=== PATIENT | female | born 1965 | race Caucasian/White ===

== ENCOUNTER 2021-09-19 17:12 | Inpatient (IN) | payer BC ==
[2021-09-19] MEDS ORDERED: MORPHINE SULFATE 4 MG/ML SYRINGE IV STA (17:44)
[2021-09-19] MEDS ORDERED: SODIUM CHLORIDE 0.9% 1,000 ML IV STA (17:44)
[2021-09-19] MEDS ORDERED: ONDANSETRON 4 MG/2 ML VIAL IVP STA (17:44)
[2021-09-19] MEDS ORDERED: amLODIPine 10 MG TAB PO SCH (17:45)
[2021-09-19] MEDS ORDERED: LISINOPRIL-HCTZ 10-12.5 MG 1 EACH TAB PO SCH (17:45)
[2021-09-19] MEDS ORDERED: lisinopriL 20 MG TAB PO SCH (17:45)
[2021-09-19] MEDS ORDERED: NALOXONE 0.4 MG/ML 1 ML VIAL IV PRN (18:28)
[2021-09-19 18:33] LABS: Basophils # (A) 0.1 k/uL (0-0.2); Basophils % (A) 1 %; Eosinophils # (A) 0.1 k/uL (0-0.7); Eosinophils % (A) 1 %; HCT 48.3 % (34.0-46.0); HGB 15.7 gm/dL (11.4-16.0); Lymphocytes # (A) 0.6 k/uL (1.0-4.8); Lymphocytes % (A) 4 %; MCH 29.5 pg (25.0-35.0); MCHC 32.6 g/dL (31.0-37.0); MCV 90.5 fL (80.0-100.0); Mean Platelet Volume 6.9; Monocytes # (A) 0.5 k/uL (0-1.0); Monocytes % (A) 3 %; Neutrophils # (A) 12.1 k/uL (1.3-7.7); Neutrophils % (A) 91 %; Platelet Count 318 k/uL (150-450); RBC 5.33 m/uL (3.80-5.40); RDW 12.5 % (11.5-15.5); WBC 13.3 k/uL (3.8-10.6)
[2021-09-19] MEDS: MORPHINE SULFATE 4 MG/ML SYRINGE IV PRN (18:33)
--- NOTE | 2021-09-19 18:35 | ED ---
General Adult HPI - General Chief complaint: Abdominal Pain Stated complaint: abd pain Time Seen by Provider: 09/19/21 17:27 Source: patient, EMS, RN notes reviewed, old records reviewed Mode of arrival: EMS Limitations: no limitations - History of Present Illness Initial comments: Patient is a 56-year-old female that was transferred from [facility] for small bowel obstruction. Prior surgeries were done at [facility], however that hospital [facility] transfers at this time. Patient was accepted here for transfer. She is been having nausea, vomiting, as well as upper bilateral quadrant abdominal pain since last night after eating pizza. Has been having somewhat decreased volumes of stools and they've become more runny. Does have a history of multiple abdominal surgeries including hernia repairs and small bowel obstructions. He was concerned that that may be because of recurrent pain. Denies any urinary complaints. Denies any blood in her stool. Did have nausea as well as nonbilious, bloody emesis. Denies chest pain, shortness of breath. No other acute complaints at this time. No other acute complaints. Presents for admission and surgical evaluation. - Related Data Home Medications Medication Instructions Recorded Confirmed Acetaminophen Tab [Tylenol Tab] 1,000 mg PO Q6HR PRN 09/19/21 09/19/21 Ascorbic Acid [Vitamin C] 500 mg PO DAILY 09/19/21 09/19/21 Aspirin EC [Ecotrin Low Dose] 81 mg PO DAILY 09/19/21 09/19/21 Baclofen 10 mg PO TID PRN 09/19/21 09/19/21 Nikko/D3/Mag11/Zinc/Manager Of Hospital/John/Bor 1 tab PO DAILY 09/19/21 09/19/21 [Caltrate 600+D Plus Tablet] Cholecalciferol [Vitamin D3 (25 25 mcg PO DAILY 09/19/21 09/19/21 Mcg = 1000 Iu)] L.acidoph,Paracasei, B.lactis 1 cap PO DAILY 09/19/21 09/19/21 [Probiotic] Lisinopril-Hctz 10-12.5 mg 1 tab PO DAILY 09/19/21 09/19/21 [Zestoretic 10-12.5] Multivitamins, Thera [Multivitamin 1 tab PO DAILY 09/19/21 09/19/21 (formulary)] Unknown Allergy Tab 1 tab PO DAILY 09/19/21 09/19/21 Zinc 50 mg PO DAILY 09/19/21 09/19/21 amLODIPine [Norvasc] 10 mg PO DAILY 09/19/21 09/19/21 lisinopriL [Zestril] 20 mg PO DAILY 09/19/21 09/19/21 Allergies Allergy/AdvReac Type Severity Reaction Status Date / Time No Known Allergies Allergy Verified 09/19/21 18:31 Review of Systems ROS Statement: Those systems with pertinent positive or pertinent negative responses have been documented in the HPI. Review of Systems: CONST: Denies fever EYES: Denies blurry vision ENT: Denies nasal congestion C/V: Denies Chest pain RESP: Denies shortness of breath GI: Endorses abdominal pain : Denies dysuria SKIN: Denies rash. MSK: Denies joint pain. NEURO: Denies headache ROS Other: All systems not noted in ROS Statement are negative. Past Medical History Past Medical History: Hypertension History of Any Multi-Drug Resistant Organisms: None Reported Past Surgical History: Bladder Surgery, Hernia Repair, Hysterectomy, Orthopedic Surgery Additional Past Surgical History / Comment(s): bowel obstruction 2017 Smoking Status: Never smoker Past Alcohol Use History: None Reported Past Drug Use History: None Reported General Exam - General Exam Comments Initial Comments: General: Appears in no acute distress. HEAD: Normal with no signs of head trauma. EYES: PERRLA, EOMI, conjunctiva normal, no discharge. ENT: Hearing grossly intact, normal oropharynx. RESPIRATORY: Clear breath sounds bilaterally. No wheezes, rales, or rhonchi. C/V: Regular rate and rhythm. S1 and S2 auscultated, no edema, peripheral pulses 2+ and intact throughout ABD: Abdomen is soft, no obvious distention. Tender to palpation in the bilateral right and left upper quadrants of the abdomen. No guarding. No peritoneal signs. No rebound tenderness. EXT: Normal range of motion, no obvious deformity SKIN: No rashes or lesions observed on exposed skin. NEURO: Alert and oriented 4. Limitations: no limitations Course Vital Signs 09/19/21 17:15 Temperature 98.3 F Pulse Rate 108 H Respiratory 18 Rate Blood Pressure 160/106 O2 Sat by Pulse 95 Oximetry Medical Decision Making - Medical Decision Making She was transferred for surgical evaluation for small bowel obstruction. Vital signs are within normal limits. She'll be started on pain medications, Zofran as needed. NG tube will be placed. Patient's labs from the outside facility appear unremarkable for we will repeat. Screening EKG will also be obtained. Preliminary report sent over for the patient's CT imaging was read as a small bowel obstruction with multiple dilated loops of proximal small bowel with a transition point appearing to be in the right lower quadrant. Images were uploaded to the system. We will repeat laboratory studies admit the patient to the hospital. She was in agreement this plan. I spoke with surgery on-call, Dr. Acosta who accepted the patient. She requested that I listened be consulted for medical management for the patient. I spoke with Dr. Nick of [facility] who accepted the consult. Patient will be admitted in stable condition. She is made nothing by mouth. - Lab Data Result diagrams: 09/19/21 18:17 Lab Results 09/19/21 Range/Units 18:17 WBC 13.3 H (3.8-10.6) k/uL RBC 5.33 (3.80-5.40) m/uL Hgb 15.7 (11.4-16.0) gm/dL Hct 48.3 H (34.0-46.0) % MCV 90.5 (80.0-100.0) fL MCH 29.5 (25.0-35.0) pg MCHC 32.6 (31.0-37.0) g/dL RDW 12.5 (11.5-15.5) % Plt Count 318 (150-450) k/uL MPV 6.9 Neutrophils % 91 % Lymphocytes % 4 % Monocytes % 3 % Eosinophils % 1 % Basophils % 1 % Neutrophils # 12.1 H (1.3-7.7) k/uL Lymphocytes # 0.6 L (1.0-4.8) k/uL Monocytes # 0.5 (0-1.0) k/uL Eosinophils # 0.1 (0-0.7) k/uL Basophils # 0.1 (0-0.2) k/uL - EKG Data -: EKG Interpreted by Me EKG Comments: 12-lead Electrocardiogram Interpretation Note EKG was reviewed and interpreted by myself. 12-lead ECG performed at 1827 is interpreted by me as revealing normal sinus rhythm at a rate of 98 beats per minute. Henderson is normal. SC interval is 165 ms, QR presybeterian is 108 ms, QTc is 419ms. There were no ST or T wave abnormalities to suggest myocardial ischemia or injury. R wave progression across the precordium was satisfactory. By my interpretation this EKG is non-diagnostic for acute ischemia. Disposition Clinical Impression: Small bowel obstruction Disposition: ADMITTED IP TO THIS HOSP Condition: Stable Referrals: Nonstaff,Physician [Primary Care Provider] - 1-2 days Time of Disposition: 18:20
[2021-09-19 18:42] LABS: ALT 28 U/L (4-34); AST 34 U/L (14-36); African American GFR (CKD) >90 (>60 ml/min/1.73 sqM); Albumin 4.9 g/dL (3.5-5.0); Alkaline Phosphatase 88 U/L (38-126); Amylase 61 U/L (30-110); Anion Gap 12 mmol/L; Blood Urea Nitrogen 24 mg/dL (7-17); Calcium 9.8 mg/dL (8.4-10.2); Carbon Dioxide 27 mmol/L (22-30); Chloride 101 mmol/L (98-107); Glucose 150 mg/dL (74-99); Lipase 55 U/L (23-300); Non-African American GFR(CKD) >90 (>60 ml/min/1.73 sqM); Sodium 140 mmol/L (137-145); Total Bilirubin 0.4 mg/dL (0.2-1.3); Total Protein 7.7 g/dL (6.3-8.2)
[2021-09-19 18:52] LABS: Potassium 4.1 mmol/L (3.5-5.1)
--- NOTE | 2021-09-19 19:22 | P.GSHP ---
History of Present Illness H&P Date: 09/19/21 Chief Complaint: Abdominal pain, nausea and vomiting Patient's a 56-year-old female who began having some discomfort in the lower abdomen yesterday. She had a pastry. Then had some pizza fairly late at night. She began having abdominal discomfort. He went into bed in was restless all night. Today she began having nausea and vomiting. She went into the emergency department and CT was suggestive of a small bowel obstruction with transition point in the right lower quadrant. She gives a history of having a strangulated hernia with small bowel resection many years ago. She has had a couple of hernia repairs, the last one was in 2018. She hasn't had any admissions for small bowel obstructions since that time. She will occasionally have some discomfort but not to this extent. That is always resolved fairly quickly if she lays on her stomach. Normal bowel movement yesterday. Small amount of stool and flatus with vomiting today. - Review of Systems All systems: negative Past Medical History Past Medical History: Hypertension History of Any Multi-Drug Resistant Organisms: None Reported Past Surgical History: Bladder Surgery, Hernia Repair, Hysterectomy, Orthopedic Surgery Additional Past Surgical History / Comment(s): bowel obstruction 2017 Smoking Status: Never smoker Past Alcohol Use History: None Reported Past Drug Use History: None Reported Medications and Allergies Home Medications Medication Instructions Recorded Confirmed Type Acetaminophen Tab [Tylenol Tab] 1,000 mg PO Q6HR PRN 09/19/21 09/19/21 History Ascorbic Acid [Vitamin C] 500 mg PO DAILY 09/19/21 09/19/21 History Aspirin EC [Ecotrin Low Dose] 81 mg PO DAILY 09/19/21 09/19/21 History Baclofen 10 mg PO TID PRN 09/19/21 09/19/21 History Nikko/D3/Mag11/Zinc/Acid Pumper/John/Bor 1 tab PO DAILY 09/19/21 09/19/21 History [Caltrate 600+D Plus Tablet] Cholecalciferol [Vitamin D3 (25 25 mcg PO DAILY 09/19/21 09/19/21 History Mcg = 1000 Iu)] L.acidoph,Paracasei, B.lactis 1 cap PO DAILY 09/19/21 09/19/21 History [Probiotic] Lisinopril-Hctz 10-12.5 mg 1 tab PO DAILY 09/19/21 09/19/21 History [Zestoretic 10-12.5] Multivitamins, Thera [Multivitamin 1 tab PO DAILY 09/19/21 09/19/21 History (formulary)] Unknown Allergy Tab 1 tab PO DAILY 09/19/21 09/19/21 History Zinc 50 mg PO DAILY 09/19/21 09/19/21 History amLODIPine [Norvasc] 10 mg PO DAILY 09/19/21 09/19/21 History lisinopriL [Zestril] 20 mg PO DAILY 09/19/21 09/19/21 History Allergies Allergy/AdvReac Type Severity Reaction Status Date / Time No Known Allergies Allergy Verified 09/19/21 18:31 Surgical - Exam Osteopathic Statement: *. No significant issues noted on an osteopathic structural exam other than those noted in the History and Physical/Consult. Vital Signs Temp Pulse Resp BP Pulse Ox 98.3 F 108 H 18 160/106 95 09/19/21 17:15 09/19/21 17:15 09/19/21 17:15 09/19/21 17:15 09/19/21 17:15 - General well developed, well nourished, no distress - Neck trachea midline - Respiratory normal expansion, clear to auscultation - Cardiovascular Rhythm: regular - Abdomen Abdomen: no guarding, no rigid, no rebound, distended (With tympany in the upper abdomen) Hernia: no umbilical (No obvious incisional hernias noted) Results - Labs 09/19/21 18:17 09/19/21 18:17 Abnormal Lab Results - Last 24 Hours (Table) 09/19/21 09/19/21 Range/Units 18:17 18:17 WBC 13.3 H (3.8-10.6) k/uL Hct 48.3 H (34.0-46.0) % Neutrophils # 12.1 H (1.3-7.7) k/uL Lymphocytes # 0.6 L (1.0-4.8) k/uL BUN 24 H (7-17) mg/dL Glucose 150 H (74-99) mg/dL Diabetes panel 09/19/21 Range/Units 18:17 Sodium 140 (137-145) mmol/L Potassium 4.1 (3.5-5.1) mmol/L Chloride 101 (98-107) mmol/L Carbon Dioxide 27 (22-30) mmol/L BUN 24 H (7-17) mg/dL Creatinine 0.57 (0.52-1.04) mg/dL Glucose 150 H (74-99) mg/dL Calcium 9.8 (8.4-10.2) mg/dL AST 34 (14-36) U/L ALT 28 (4-34) U/L Alkaline Phosphatase 88 (38-126) U/L Total Protein 7.7 (6.3-8.2) g/dL Albumin 4.9 (3.5-5.0) g/dL Calcium panel 09/19/21 Range/Units 18:17 Calcium 9.8 (8.4-10.2) mg/dL Albumin 4.9 (3.5-5.0) g/dL Pituitary panel 09/19/21 Range/Units 18:17 Sodium 140 (137-145) mmol/L Potassium 4.1 (3.5-5.1) mmol/L Chloride 101 (98-107) mmol/L Carbon Dioxide 27 (22-30) mmol/L BUN 24 H (7-17) mg/dL Creatinine 0.57 (0.52-1.04) mg/dL Glucose 150 H (74-99) mg/dL Calcium 9.8 (8.4-10.2) mg/dL Adrenal panel 09/19/21 Range/Units 18:17 Sodium 140 (137-145) mmol/L Potassium 4.1 (3.5-5.1) mmol/L Chloride 101 (98-107) mmol/L Carbon Dioxide 27 (22-30) mmol/L BUN 24 H (7-17) mg/dL Creatinine 0.57 (0.52-1.04) mg/dL Glucose 150 H (74-99) mg/dL Calcium 9.8 (8.4-10.2) mg/dL Total Bilirubin 0.4 (0.2-1.3) mg/dL AST 34 (14-36) U/L ALT 28 (4-34) U/L Alkaline Phosphatase 88 (38-126) U/L Total Protein 7.7 (6.3-8.2) g/dL Albumin 4.9 (3.5-5.0) g/dL Assessment and Plan (1) Hypertension Current Visit: Yes Status: Acute Code(s): I10 - ESSENTIAL (PRIMARY) HYPERTENSION SNOMED Code(s): 19782705 (2) Small bowel obstruction Current Visit: Yes Status: Acute Code(s): K56.609 - UNSP INTESTNL OBST, UNSP TO PARTIAL VERSUS COMPLETE OBST SNOMED Code(s): 302498530 Plan: Patient will be admitted. Hydrate. NG tube decompression. Bowel rest. Serial exams. DVT and ulcer prophylaxis. I discussed the usual treatment of this. Based on current findings which I nonsurgical treatment. Further recommendations to follow.
[2021-09-19 19:43] LABS: INR 0.9 (<1.2); Partial Thromboplastin Time 21.9 sec (22.0-30.0); Prothrombin Time 10.1 sec (9.0-12.0)
--- NOTE | 2021-09-19 20:11 | XR ---
EXAMINATION TYPE: XR chest 1V confirm line [facility] DATE OF EXAM: 09/19/2021 COMPARISON: NONE HISTORY: Tube placement TECHNIQUE: 3 views FINDINGS: There is no heart failure nor confluent pneumonic infiltrate. Costophrenic angles are clear . Bony thorax is intact there is nasogastric tube in the stomach. IMPRESSION: No active cardiopulmonary disease. NG tube is in the stomach.
[2021-09-19] MEDS: ONDANSETRON 4 MG/2 ML VIAL IVP PRN (23:38)
[2021-09-19] MEDS: HEPARIN SODIUM,PORCINE/PF 5,000 UNIT/0.5 ML SYRINGE SQ SCH (23:43)
[2021-09-20] MEDS: MORPHINE SULFATE 4 MG/ML SYRINGE IV PRN (00:44)
--- NOTE | 2021-09-20 02:46 | P.CONS ---
History of Present Illness - Reason for Consult Consult date: 09/19/21 medical management - Chief Complaint abd pain - History of Present Illness 56 year old female with hypertension comes in for abd pain of 1 day duration , started last night after Pizza dinner, lower abd pain, non radiating, was more of discomfort initially , she was feeling well all day prior to that. was able to go to sleep but today pain progressed throughout the day , got worse, and associated with vomiting, non bilious or bloody. she continue to pass gases, and small amount of stool ye sterday. due to prior experience with multiple episodes of strangulated hernia and bowel obstructions and surgeries, she decided to come in for evaluation . denies any GI bleeding, denies urinary changes, fever, chills. denies SOB or chest pain. CT imaging of the abd suggested SBO. Past Medical History Past Medical History: Hypertension History of Any Multi-Drug Resistant Organisms: None Reported Past Surgical History: Bladder Surgery, Hernia Repair, Hysterectomy, Orthopedic Surgery Additional Past Surgical History / Comment(s): bowel obstruction 2017 Smoking Status: Never smoker Past Alcohol Use History: None Reported Past Drug Use History: None Reported Medications and Allergies Home Medications Medication Instructions Recorded Confirmed Type Acetaminophen Tab [Tylenol Tab] 1,000 mg PO Q6HR PRN 09/19/21 09/19/21 History Ascorbic Acid [Vitamin C] 500 mg PO DAILY 09/19/21 09/19/21 History Aspirin EC [Ecotrin Low Dose] 81 mg PO DAILY 09/19/21 09/19/21 History Baclofen 10 mg PO TID PRN 09/19/21 09/19/21 History Nikko/D3/Mag11/Zinc/[employer] Portal Developer/John/Bor 1 tab PO DAILY 09/19/21 09/19/21 History [Caltrate 600+D Plus Tablet] Cholecalciferol [Vitamin D3 (25 25 mcg PO DAILY 09/19/21 09/19/21 History Mcg = 1000 Iu)] L.acidoph,Paracasei, B.lactis 1 cap PO DAILY 09/19/21 09/19/21 History [Probiotic] Lisinopril-Hctz 10-12.5 mg 1 tab PO DAILY 09/19/21 09/19/21 History [Zestoretic 10-12.5] Multivitamins, Thera [Multivitamin 1 tab PO DAILY 09/19/21 09/19/21 History (formulary)] Unknown Allergy Tab 1 tab PO DAILY 09/19/21 09/19/21 History Zinc 50 mg PO DAILY 09/19/21 09/19/21 History amLODIPine [Norvasc] 10 mg PO DAILY 09/19/21 09/19/21 History lisinopriL [Zestril] 20 mg PO DAILY 09/19/21 09/19/21 History Allergies Allergy/AdvReac Type Severity Reaction Status Date / Time No Known Allergies Allergy Verified 09/19/21 18:31 Physical Exam Vitals: Vital Signs Temp Pulse Pulse Resp BP BP Pulse Ox 09/19/21 21:57 98.8 F 98 18 154/87 93 L 09/19/21 20:28 99 138/94 100 09/19/21 17:15 98.3 F 108 H 18 160/106 95 Intake and Output 09/19/21 09/19/21 09/20/21 14:59 22:59 06:59 Other: Weight 107.501 kg Constitutional: No acute distress, conversant, cooperative, NG tube in place Eyes: Anicteric sclerae, moist conjunctiva, Pupils equal round reactive to light Neck: Supple, no masses, or JVD No carotid bruits No thyromegaly Lungs: Clear to auscultation Clear to percussion Normal respiratory effort, no accessory muscle use Cardiovascular: Heart regular in rate and rhythm, No murmurs, gallops, or rubs No peripheral edema Abdominal: Soft discomfort to deep palpation no guarding, rebound or rigidity Abdomen moving with respiration Normoactive bowel sounds No hepatomegaly, No splenomegaly No palpable mass No abdominal wall hernia noted Skin: Normal temperature, tone, texture, turgor No induration No subcutaneous nodules No rash, lesions No ulcers Extremities: No digital cyanosis No clubbing Pedal pulses intact and symmetrical Radial pulses intact and symmetrical No calf tenderness Psychiatric: Alert and oriented to person, place and time Appropriate affect fair judgement Neuro Muscles Strength 5/5 in all 4 extremities Sensation to light touch grossly present throughout Cranial nerves II-XII grossly intact No focal sensory deficits Lymphatics: no palpable cervical or supraclavicular , or inguinal lymph nodes Results CBC & Chem 7: 09/19/21 18:17 09/19/21 18:17 Labs: Abnormal Lab Results - Last 24 Hours (Table) 09/19/21 09/19/21 09/19/21 Range/Units 18:17 18:17 19:02 WBC 13.3 H (3.8-10.6) k/uL Hct 48.3 H (34.0-46.0) % Neutrophils # 12.1 H (1.3-7.7) k/uL Lymphocytes # 0.6 L (1.0-4.8) k/uL APTT 21.9 L (22.0-30.0) sec BUN 24 H (7-17) mg/dL Glucose 150 H (74-99) mg/dL Assessment and Plan Assessment: SBO Management per general surgery, no plans for immediate intervention NG tube in place Nothing by mouth IV fluid hydration Patient passing gases No GI bleeding Protonix daily Leukocytosis most likely reactive to above Chronic conditions Hypertension Continue lisinopril and amlodipine Full code DVT prophylaxis heparin subcu 3 times a day Follow-up morning labs electrolytes and renal function, CBC Thank you for allowing us to participate in the care of this patient. Do not hesitate to contact us with questions. Someone can be reached from the [facility] hospitalist group at all hours of the day at [phone].
--- NOTE | 2021-09-20 03:58 | XR ---
EXAM: XR Chest, 1 View CLINICAL HISTORY: ITS.REASON XR Reason: NG tube placement TECHNIQUE: Frontal view of the chest. COMPARISON: 09/19/2021 IMPRESSION: NG tube terminates in the gastric fundus
[2021-09-20] MEDS: HEPARIN SODIUM,PORCINE/PF 5,000 UNIT/0.5 ML SYRINGE SQ SCH ×3 (07:42→23:41)
[2021-09-20] MEDS: PANTOPRAZOLE 40 MG/10 ML VIAL IVP SCH (07:43)
[2021-09-20] MEDS: lisinopriL 20 MG TAB PO SCH (07:43)
[2021-09-20] MEDS: amLODIPine 10 MG TAB PO SCH (07:43)
[2021-09-20 09:10] LABS: Basophils # (A) 0.03 X 10*3/uL (0.00-0.10); Basophils % (A) 0.3 %; Eosinophils # (A) 0.01 X 10*3/uL (0.04-0.35); Eosinophils % (A) 0.1 %; HGB 13.1 g/dL (12.0-15.0); Immature Grans, Automated 0.3 %; Lymphocytes # (A) 0.83 X 10*3/uL (0.90-5.00); Lymphocytes % (A) 8.5 %; MCH 28.4 pg (27.0-32.0); MCHC 31.2 g/dL (32.0-37.0); MCV 91.1 fL (80.0-97.0); Mean Platelet Volume 9.7 fL (9.5-12.2); Monocytes # (A) 0.76 X 10*3/uL (0.20-1.00); Monocytes % (A) 7.7 %; NRBC Per 100 WBC 0 /100 WBCS (0.0-0.0); Neutrophils # (A) 8.15 X 10*3/uL (1.80-7.70); Neutrophils % (A) 83.1 %; Platelet Count 285 X 10*3/uL (140-440); RBC 4.61 X 10*6/uL (4.10-5.20); RDW 12.9 % (11.5-14.5); WBC 9.81 X 10*3/uL (4.50-10.00)
--- NOTE | 2021-09-20 09:11 | XR ---
EXAMINATION TYPE: XR abdomen 2V DATE OF EXAM: 09/20/2021 COMPARISON: NONE HISTORY: Pain TECHNIQUE: One view abdominal series FINDINGS: The osseous structures are intact. The bowel gas pattern is nonspecific. Dilated small bowel loops w ith NG tube noted likely overlying the gastric body. Findings suggestive of bowel obstruction. Scolio tic curvature of the spine. Surgical clips right upper quadrant. Air is seen within the colon. IMPRESSION: 1. Numerous dilated small bowel loops with pattern suggestive of at least partial bowel obstruction o r severe ileus correlate clinically.
[2021-09-20 09:33] LABS: African American GFR (CKD) 123.6 (60.0-200.0); Anion Gap 12.4 mmol/L (10.00-18.00); BUN/Creat Ratio 48.8 Ratio (12.00-20.00); Blood Urea Nitrogen 24.4 mg/dL (9.0-27.0); Calcium 8.6 mg/dL (8.7-10.3); Carbon Dioxide 25.6 mmol/L (20.0-27.5); Non-African American GFR(CKD) 106.7 (60.0-200.0); Potassium 3.8 mmol/L (3.5-5.5)
[2021-09-20] MEDS: ONDANSETRON 4 MG/2 ML VIAL IVP PRN (12:27)
--- NOTE | 2021-09-20 15:28 | P.PN ---
Subjective Progress Note Date: 09/20/21 Hospital course: Patient is a very pleasant 56-year-old female with a past medical history of hypertension, strangulated hernia requiring repair, bowel obstructions with surgical repair, hysterectomy, and bladder surgery.. She presented to the emergency department with a chief complaint of abdominal pain. Patient reported this pain began shortly after eating pizza for dinner. This pain was reported as diffuse pain to lower abdomen which progressively worsened and became associa kalpana with nausea and vomiting. Patient underwent full evaluation in the emergency department at [facility]. CT abdomen and pelvis was reportedly concerning for a small bowel obstruction and patient was transferred to our facility for evaluation by general surgery and continued medical management. Patient is currently admitted under Gen. surgery team and we have been consulted for continued medical management throughout her hospitalization. Physical exam: Patient seen and fully evaluated at bedside. She was sitting up in chair, she reports significant improvement in previously reported abdominal pain/discomfort. Reports only mild epigastric pain remains. NG tube in place and continues to low intermittent suction with moderate amount of dark brown drainage. Per documentation in chart patient has had a total of 700 mL's of combined gastric drainage/emesis over the past 24 hours. Patient has had no further episodes of vomiting since placement of NG tube. Morning labs unremark able. Patient has had resolution of previously noted leukocytosis. Patient was started on IV fluids with D5 0.45 secondary to NPO status. KUB completed this morning which revealed numerous dilated small bowel loops with pattern suggestive of at least partial bowel obstruction or severe ileus. Vital signs reviewed and stable. General: Nontoxic, no distress and appears stated age. Derm: Skin warm and dry, normal coloration for ethnicity. Head: Atraumatic, normocephalic and symmetric. Eyes: EOMs intact, no lid lag, and anicteric sclera Mouth: no lip lesions, mucus membranes moist Cardiovascular: regular rate and rhythm with normal S1S2, no murmur, positive posterior tibial pulses bilaterally, and cap refill < 2 seconds. Lungs: Respirations even, regular, and unlabored on room air. Lungs CTA bilaterally, no rhonchi, no rales, no wheezing, and no accessory muscle usage. Abdominal: soft, mild tenderness upon palpation was reported to mid epigastric region only no guarding, no appreciable organomegaly Ext: ROM intact. No gross muscle atrophy, no edema, no contractures Neuro: Speech clear, face symmetrical and CN II-XII grossly intact with no noted focal neuro deficits Psych: Alert and oriented to person, place, time, and situation. Appropriate and pleasant affect. Assessment and Plan of Care: Abdominal pain, nausea, and vomiting Small bowel obstruction -Management per primary admitting general surgery team. -Patient currently undergoing conservative/supportive measures and bowel rest with no plans for immediate intervention. -Maintain NG tube to low intermittent suction and monitor gastric output. -Continue to provide gentle IV fluid hydration with D5 0.45% normal saline until patient resumes normal diet. -Maintain NPO status until diet is increased by general surgery team. Leukocytosis, resolved -Likely reactive. No signs of infection at this time. We will continue to monitor with repeat a.m. labs. Hypertension -Monitor vital signs and continue daily medication regimen with Norvasc and lisinopril. DVT prophylaxis with heparin Thank you for allowing us to participate in the care of this pleasant patient. Do not hesitate to contact us with questions. Someone can be reached from the [facility] hospitalist group all hours of the day at [phone] or via [employer] Objective - Vital Signs Vital signs: Vital Signs Temp 98.5 F 09/20/21 02:00 Pulse 98 09/20/21 02:00 Resp 16 09/20/21 02:00 BP 136/78 09/20/21 02:00 Pulse Ox 91 L 09/20/21 02:00 FiO2 Intake & Output 09/19/21 09/20/21 09/20/21 18:59 06:59 18:59 Intake Total 390 Output Total 700 Balance -310 Weight 107.501 kg 107.501 kg Intake: Intake, IV Titration 390 Amount Sodium Chloride 0.9% 1, 390 000 ml @ 130 mls/hr IV . Q7H42M STA Rx#:[id number] Output: Gastric Drainage 100 Emesis 600 Other: # Voids 3 - Labs CBC & Chem 7: 09/20/21 05:33 09/20/21 05:33 Labs: Abnormal Lab Results - Last 24 Hours (Table) 09/19/21 09/19/21 09/19/21 Range/Units 18:17 18:17 19:02 WBC 13.3 H (3.8-10.6) k/uL Hct 48.3 H (34.0-46.0) % Neutrophils # 12.1 H (1.3-7.7) k/uL Lymphocytes # 0.6 L (1.0-4.8) k/uL APTT 21.9 L (22.0-30.0) sec BUN 24 H (7-17) mg/dL Glucose 150 H (74-99) mg/dL
--- NOTE | 2021-09-20 15:52 | P.PN ---
Subjective Progress Note Date: 09/20/21 Principal diagnosis: Small bowel obstruction The patient is seen on rounds. Passing small amounts of flatus. NG came out last night but was reinserted when she had episodes of vomiting. Less pain today Objective - Vital Signs Vital signs: Vital Signs Temp 98.3 F 09/20/21 08:00 Pulse 91 09/20/21 08:00 Resp 17 09/20/21 08:00 BP 138/82 09/20/21 08:00 Pulse Ox 93 L 09/20/21 08:00 FiO2 Intake & Output 09/19/21 09/20/21 09/20/21 18:59 06:59 18:59 Intake Total 390 Output Total 700 Balance -310 Weight 107.501 kg 107.501 kg Intake: Intake, IV Titration 390 Amount Sodium Chloride 0.9% 1, 390 000 ml @ 130 mls/hr IV . Q7H42M STA Rx#:[id number] Output: Gastric Drainage 100 Emesis 600 Other: # Voids 3 - Constitutional General appearance: Present: cooperative, no acute distress - Gastrointestinal General gastrointestinal: Present: distended (but improved from yesterday), normal bowel sounds, tenderness (mild upper abdominal tenderness without guarding or rebound) - Labs CBC & Chem 7: 09/20/21 05:33 09/20/21 05:33 Labs: Abnormal Lab Results - Last 24 Hours (Table) 09/19/21 09/19/21 09/19/21 Range/Units 18:17 18:17 19:02 WBC 13.3 H (3.8-10.6) k/uL Hct 48.3 H (34.0-46.0) % MCHC (32.0-37.0) g/dL Neutrophils # 12.1 H (1.3-7.7) k/uL Lymphocytes # 0.6 L (1.0-4.8) k/uL Eosinophils # (0.04-0.35) X 10*3/uL APTT 21.9 L (22.0-30.0) sec BUN 24 H (7-17) mg/dL Creatinine (0.6-1.5) mg/dL BUN/Creatinine Ratio (12.00-20.00) Ratio Glucose 150 H (74-99) mg/dL Calcium (8.7-10.3) mg/dL 09/20/21 09/20/21 Range/Units 05:33 05:33 WBC (3.8-10.6) k/uL Hct (34.0-46.0) % MCHC 31.2 L (32.0-37.0) g/dL Neutrophils # 8.15 H (1.3-7.7) k/uL Lymphocytes # 0.83 L (1.0-4.8) k/uL Eosinophils # 0.01 L (0.04-0.35) X 10*3/uL APTT (22.0-30.0) sec BUN (7-17) mg/dL Creatinine 0.5 L (0.6-1.5) mg/dL BUN/Creatinine Ratio 48.80 H (12.00-20.00) Ratio Glucose 117 H (74-99) mg/dL Calcium 8.6 L (8.7-10.3) mg/dL - Imaging and Cardiology Abdominal x-ray: report reviewed, image reviewed Assessment and Plan (1) Small bowel obstruction Current Visit: Yes Status: Acute Code(s): K56.609 - UNSP INTESTNL OBST, UNSP TO PARTIAL VERSUS COMPLETE OBST SNOMED Code(s): 958976344 (2) Hypertension Current Visit: Yes Status: Acute Code(s): I10 - ESSENTIAL (PRIMARY) HYPERTENSION SNOMED Code(s): 44817218 Plan: There is air and stool in rectum. Still dilated loops of small bowel but distention is improved from yesterday. Will continue with NG tube decompression, IV fluids, encourage ambulation. Repeat Xray in am. Currently nonsurgical
[2021-09-20] MEDS: DEXTROSE 5%-0.45% NACL 1,000 ML IV SCH (16:40)
[2021-09-21] MEDS: ONDANSETRON 4 MG/2 ML VIAL IVP PRN (06:22)
[2021-09-21] MEDS: HEPARIN SODIUM,PORCINE/PF 5,000 UNIT/0.5 ML SYRINGE SQ SCH ×2 (07:55→15:30)
[2021-09-21] MEDS: amLODIPine 10 MG TAB PO SCH (08:11)
[2021-09-21] MEDS: lisinopriL 20 MG TAB PO SCH (08:11)
--- NOTE | 2021-09-21 09:01 | P.PN ---
Subjective Progress Note Date: 09/21/21 Principal diagnosis: Small bowel obstruction The patient is seen on rounds. She has passed flatus and had a small bowel movement. Denies any pain. She did have some slight nausea. Overall better than admission Objective - Vital Signs Vital signs: Vital Signs Temp 98.4 F 09/21/21 07:29 Pulse 78 09/21/21 07:29 Resp 18 09/21/21 07:29 BP 114/79 09/21/21 07:29 Pulse Ox 97 09/21/21 02:00 FiO2 Intake & Output 09/20/21 09/21/21 09/21/21 18:59 06:59 18:59 Output Total 350 200 Balance -350 -200 Output: Gastric Drainage 350 200 Other: # Voids 2 - Constitutional General appearance: Present: cooperative, no acute distress - Gastrointestinal General gastrointestinal: Present: normal bowel sounds, soft. Absent: distended (tympany has resolved) - Labs CBC & Chem 7: 09/20/21 05:33 09/20/21 05:33 Labs: Abnormal Lab Results - Last 24 Hours (Table) 09/20/21 09/20/21 Range/Units 05:33 05:33 MCHC 31.2 L (32.0-37.0) g/dL Neutrophils # 8.15 H (1.80-7.70) X 10*3/uL Lymphocytes # 0.83 L (0.90-5.00) X 10*3/uL Eosinophils # 0.01 L (0.04-0.35) X 10*3/uL Creatinine 0.5 L (0.6-1.5) mg/dL BUN/Creatinine Ratio 48.80 H (12.00-20.00) Ratio Glucose 117 H (70-110) mg/dL Calcium 8.6 L (8.7-10.3) mg/dL Assessment and Plan (1) Small bowel obstruction Current Visit: Yes Status: Acute Code(s): K56.609 - UNSP INTESTNL OBST, UNSP TO PARTIAL VERSUS COMPLETE OBST SNOMED Code(s): 136894539 (2) Hypertension Current Visit: Yes Status: Acute Code(s): I10 - ESSENTIAL (PRIMARY) HYPERTENSION SNOMED Code(s): 21510125 Plan: Small bowel obstruction appears to be resolving. The NG tube will be clamped. If she is able to tolerate that it will be removed in 6 hours. Then she can start on clear liquids. Further recommendations to follow
[2021-09-21] MEDS: PANTOPRAZOLE 40 MG/10 ML VIAL IVP SCH (09:12)
--- NOTE | 2021-09-21 16:33 | P.PN ---
Progress Note - Text Progress Note Date: 09/21/21 Mrs. Nielsen was seen and examined. Abdominal pain has resolved. Abdomen is less distended. She is passing gas. Bowel movement was yesterday. Plan of care discussed with her. NG tube is clamped. Vitals: Reviewed General: No acute distress HEENT: Mucous membranes dry, neck supple Cardiovascular: RRR, S1-S2 Lungs: Breath sounds equal and clear to auscultation bilaterally. No wheezing, rhonchi or rales Abdomen: Distended, nontender Extremities: No lower extremity edema Lab data reviewed Assessment and plan 1. Abdominal pain secondary to partial small bowel obstruction, improving NG tube clamped,if tolerates can start clear liquid diet. Supportive measures with IV fluids, antiemetics and pain control. 2. Hypertension Controlled. Continue with amlodipine and lisinopril. 3. Leukocytosis, resolved Reactive DVT prophylaxis with subcu heparin GI prophylaxis with Pepcid Disposition: If tolerates diet can likely be discharged tomorrow
--- NOTE | 2021-09-21 17:48 | XR ---
EXAMINATION TYPE: XR abdomen 2V DATE OF EXAM: 09/21/2021 4:49 PM INDICATION: Patient age:Female; 56 years old; Reason for study: followup small bowel obstruction; COMPARISON: Abdomen 09/20/2021. TECHNIQUE: One radiographic view of the abdomen was obtained. FINDINGS: Persistent but decreased amount of bowel loops which are dilated predominantly in the left abdomen. No abnormal calcifications. No acute osseous pathology. The surgical clips in the right uppe r quadrant. Multilevel disc degeneration changes are present. Mild scoliosis changes. IMPRESSION: Interval decrease in dilation of small bowel loops compared to one day prior.
[2021-09-22] MEDS: DEXTROSE 5%-0.45% NACL 1,000 ML IV SCH ×3 (01:34→07:11)
[2021-09-22] MEDS: HEPARIN SODIUM,PORCINE/PF 5,000 UNIT/0.5 ML SYRINGE SQ SCH ×2 (01:34→11:13)
[2021-09-22] MEDS: amLODIPine 10 MG TAB PO SCH (09:24)
[2021-09-22] MEDS: PANTOPRAZOLE 40 MG/10 ML VIAL IVP SCH (09:24)
[2021-09-22] MEDS: lisinopriL 20 MG TAB PO SCH (09:24)
[2021-09-22 14:12] VITALS: BP 115/64; PULSE 65; RESP 18; TEMP 97.5
--- NOTE | 2021-09-22 15:04 | P.DS ---
Providers Date of admission: 09/19/21 18:31 Expected date of discharge: 09/22/21 Attending physician: Spring Acosta Consults: 09/19/21 18:28 Consult Physician Routine Consulting Provider: Andrez Nick Consult Reason/Comments: medical management Do you want consulting provider notified?: Already Contacted Primary care physician: Physician Nonstaff - Discharge Diagnosis(es) (1) Small bowel obstruction Current Visit: Yes Status: Acute (2) Hypertension Current Visit: Yes Status: Acute Hospital Course: The patient was admitted to the hospital September 19 with a bowel obstruction. She was conservatively treated with bowel rest, NG tube decompression, IV hydration. She slowly improved. The NG tube was able to be removed and then she was started on a diet. By 09-22 she was tolerating a low fiber diet with no abdominal pain, nausea or vomiting Patient Condition at Discharge: Good Plan - Discharge Summary Discharge Rx Participant: Yes New Discharge Prescriptions: No Action Multivitamins, Thera [Multivitamin (formulary)] 1 tab PO DAILY Lisinopril-Hctz 10-12.5 mg [Zestoretic 10-12.5] 1 tab PO DAILY Nikko/D3/Mag11/Zinc/Tank Operator/John/Bor [Caltrate 600+D Plus Tablet] 1 tab PO DAILY Ascorbic Acid [Vitamin C] 500 mg PO DAILY lisinopriL [Zestril] 20 mg PO DAILY Unknown Allergy Tab 1 tab PO DAILY Cholecalciferol [Vitamin D3 (25 Mcg = 1000 Iu)] 25 mcg PO DAILY Acetaminophen Tab [Tylenol Tab] 1,000 mg PO Q6HR PRN PRN Reason: Pain Or Fever > 100.5 Zinc 50 mg PO DAILY Aspirin EC [Ecotrin Low Dose] 81 mg PO DAILY amLODIPine [Norvasc] 10 mg PO DAILY Baclofen 10 mg PO TID PRN PRN Reason: Pain L.acidoph,Paracasei, B.lactis [Probiotic] 1 cap PO DAILY Discharge Medication List Acetaminophen Tab [Tylenol Tab] 1,000 mg PO Q6HR PRN 09/19/21 [History] Ascorbic Acid [Vitamin C] 500 mg PO DAILY 09/19/21 [History] Aspirin EC [Ecotrin Low Dose] 81 mg PO DAILY 09/19/21 [History] Baclofen 10 mg PO TID PRN 09/19/21 [History] Nikko/D3/Mag11/Zinc/Tank Operator/John/Bor [Caltrate 600+D Plus Tablet] 1 tab PO DAILY 09/19/21 [History] Cholecalciferol [Vitamin D3 (25 Mcg = 1000 Iu)] 25 mcg PO DAILY 09/19/21 [History] L.acidoph,Paracasei, B.lactis [Probiotic] 1 cap PO DAILY 09/19/21 [History] Lisinopril-Hctz 10-12.5 mg [Zestoretic 10-12.5] 1 tab PO DAILY 09/19/21 [History] Multivitamins, Thera [Multivitamin (formulary)] 1 tab PO DAILY 09/19/21 [History] Unknown Allergy Tab 1 tab PO DAILY 09/19/21 [History] Zinc 50 mg PO DAILY 09/19/21 [History] amLODIPine [Norvasc] 10 mg PO DAILY 09/19/21 [History] lisinopriL [Zestril] 20 mg PO DAILY 09/19/21 [History] Follow up Appointment(s)/Referral(s): Nonstaff,Physician [Primary Care Provider] - 1-2 days Patient Instructions/Handouts: Low Fiber Diet (ED) Activity/Diet/Wound Care/Special Instructions: Eat easy to digest, low fiber foods for 1-2 weeks. You may return to work 09/17/2021 Discharge Disposition: HOME SELF-CARE
--- NOTE | 2021-09-22 16:14 | P.PN ---
Progress Note - Text Progress Note Date: 09/22/21 CC: Bloating Mrs. Nielsen was seen and examined this morning. Tolerating diet. Having bowel movements. Passing gas. Abdominal pain is resolved. Vitals: Reviewed General: No acute distress HEENT: Mucous membranes dry, neck supple Cardiovascular: RRR, S1-S2 Lungs: Breath sounds equal and clear to auscultation bilaterally. No wheezing, rhonchi or rales Abdomen: Soft, distended Extremities: No lower extremity edema Lab data reviewed Assessment and plan 1. Abdominal pain secondary to partial small bowel obstruction, improving NG tube clamped,if tolerates can start clear liquid diet. Supportive measures with IV fluids, antiemetics and pain control. 2. Hypertension Controlled. Continue with amlodipine and lisinopril. 3. Leukocytosis, resolved Reactive DVT prophylaxis with subcu heparin GI prophylaxis with Pepcid
== END 2021-09-22 17:05 | disposition home or self-care (01) | DRG 389 ==
LOC: EC 17:12 → 4SSUR 18:31
PROVIDERS: ADMIT Surgery; ATTEND Surgery
PROC: 0D9670Z Drainage of Stomach with Drainage Device, Via Natural or Artificial Opening (ICD-10-PCS; principal; 2021-09-19)
DX: K56.600 Partial intestinal obstruction, unspecified as to cause (principal); K92.0 Hematemesis; D72.829 Elevated white blood cell count, unspecified; I10 Essential (primary) hypertension; Z79.82 Long term (current) use of aspirin; Z79.899 Other long term (current) drug therapy; Z28.310 Unvaccinated for COVID-19
CPT/HCPCS: 36415; 71045; 74019; 80048; 80053; 82150; 83605; 83690; 85025; 85610; 85730; 86850; 86900; 86901; 93005; 96374; 99285